=== PATIENT | female | born 1985 | race Caucasian/White ===

== ENCOUNTER 2021-06-09 11:56 | Emergency (ER) | payer OTHER ==
[2021-06-09] MEDS ORDERED: MEDROL DOSEPAK 24 MG PO (14:02)
[2021-06-09] MEDS ORDERED: DELSYM30 MG/5 ML PO (14:02)
[2021-06-09] MEDS ORDERED: IBUPROFEN600 MG PO (14:02)
== END 2021-06-09 14:04 | disposition home or self-care (01) ==
LOC: ER1 11:56
DX: U07.1 COVID-19 (principal); F17.210 Nicotine dependence, cigarettes, uncomplicated
CPT/HCPCS: 99284; U0002